=== PATIENT | female | born 1950 | race Asian ===

== ENCOUNTER → 2018-11-02 | Day surgery (SDC) | payer MEDICARE ==
[2018-11-01 13:48] VITALS: BMI 29.0
--- NOTE | 2018-11-01 14:06 | RAD REPORT ---
EXAM DESCRIPTION: RAD - Chest Pa And Lat (2 Views) - 11/01/2018 2:01 pm CLINICAL HISTORY: pre-op Chest pain. COMPARISON: No comparisons FINDINGS: The lungs are clear. The heart is upper limit of normal in size. No displaced fractures.
[2018-11-01 14:18] LABS: Absolute Lymphocytes (CBC) 2.1 K/uL (0.7-4.9); Basophils % 0.8 % (0-1.3); Lymphocytes % 23.3 % (15.3-44.8); RBC Red Blood Cell Count 4.46 M/uL (3.86-4.86)
[2018-11-01 14:34] LABS: Potassium 4.3 mmol/L (3.5-5.1)
[2018-11-01 14:55] LABS: Protime INR 0.95
[~2018-11-02] MED LIST: ATROPINE SULF 1 MG/10 ML SYR IV ONE; FENTANYL CITR 100 MCG/2 ML ONE; HEPA 1000U/500MLS 1,000 UNIT/500 ML BAG IV ONE; MIDAZOLAM HCL 2 MG/2 ML INJ ONE; NA CHLORIDE 0.9% 0 ML ONE; NA CHLORIDE 0.9% 500 ML ONE
--- OUTSIDE RECORDS SUMMARY | 2018-11-02 08:18 | XMS REPORT ---
:1950 Author Organization [employer] Care Team Providers Name Role Phone Derek Geiger Provider Role Unavailable Allergies, Adverse Reactions, Alerts Substance Reaction Event Type N.K.D.A. Info Not Available Non Drug Allergy Problems Problem Type Condition Code Onset Dates Condition Status Problem Pain, joint, hip, right M25.551 Active Problem Right sided sciatica M54.31 Active Assessment Pain, joint, hip, right M25.551 Active Assessment Right sided sciatica M54.31 Active Medications Medication Code Code Instructions Start End Date Status Dosage System Date Tramadol HCl NDC 59480609826 50 MG Orally Oct 19, Active 1 tablet every 6 hrs 2018 as needed losartan NDC 0 Active not defined ibuprofen NDC 0 Active not defined Tylenol NDC 0 Active not defined Results No Known Results Summary Purpose [employer] Submission
--- OUTSIDE RECORDS SUMMARY | 2018-11-02 08:18 | XMS REPORT ---
[...] Start End Date Status Dosage System Date losartan NDC 0 Active not defined Tylenol NDC 0 Active not defined Tramadol HCl NDC 51485087204 50 MG Orally Oct 19, Active 1 tablet every 6 hrs 2017 as needed ibuprofen NDC 0 Active not defined Results No Known Results Summary Purpose [employer] Submission
--- OUTSIDE RECORDS SUMMARY | 2018-11-02 08:18 | XMS REPORT ---
:1950 Author Organization [employer] Care Team Providers Name Role Phone Derek Geiger Provider Role Unavailable Allergies No Known Allergies Problems Problem Type Condition Code Onset Dates Condition Status Problem Pain, joint, hip, right M25.551 Active Problem Right sided sciatica M54.31 Active Medications No Known Medications Results No Known Results Summary Purpose [employer] Submission
[2018-11-02 12:55] VITALS: BP 151/57
[2018-11-02 12:57] VITALS: TEMP 98; O2SAT 99
--- NOTE | 2018-11-02 22:43 | OP ---
Date of Procedure: 11/02/2018 Surgeon: Ayden Payne MD Cooperative Extension Agent: Mario Laguerre. Procedures: Left heart catheterization, selective coronary arteriogram, and left ventriculogram. Indication: Unstable angina. History Of Present Illness: Ms. Rogers is 68. She was brought into the [facility] as an outpatient tod ay on 11/02/2018. She was prepped and draped in the routine sterile fashion. She was given fentanyl and Versed for sedation. A 6-Palestinian sheath introduced in the right common femoral artery. Angiogra phy there was normal. Angio-Seal was used to close the case. Concepcion catheters 6-Palestinian were used t o cannulate the left main and the right main respectively. The left main was normal, with short circ umflex was very large and normal. The LAD had some moderate plaquing in the middle of the vessel. T he RCA was normal. She was left dominant. There were no complications. Blood Loss: 5 cc. Anesthesia: Total conscious sedation was 30 minutes. Final Diagnoses: Mild coronary artery disease. Plan: To start the patient on Zocor 40 mg daily. She will go home today after 2 hours of bedrest an d see me in the office in 2 weeks. [employer] Winder: Leon Benito/JOANA Voice ID: [id number] Report ID: [id number]
== END | disposition home health service (06) ==
LOC: CCL 08:16
DX: I25.110 Atherosclerotic heart disease of native coronary artery with unstable angina pectoris (principal); I51.7 Cardiomegaly; I10 Essential (primary) hypertension; E78.5 Hyperlipidemia, unspecified; G47.30 Sleep apnea, unspecified; Z82.49 Family history of ischemic heart disease and other diseases of the circulatory system
CPT/HCPCS: 85025; 80048; 36415; 85610; 85730; 71046; 93458; C1893; C1760; J2250 ×2; J3010; J0583